=== PATIENT | male | born 1960 | race Caucasian/White ===

== ENCOUNTER 2019-07-15 08:19 | Day surgery (SDC) | payer BC ==
[~2019-07-15] VITALS: Ht 182.9 cm; Wt 88.9 kg
[~2019-07-15 08:19] MED LIST: CLARITIN10 MG PO; Hair, Skin & N1 EACH PO; OMEPRAZOLE20 MG PO
--- NOTE | 2019-07-15 09:05 | NUR ---
History, Chart, Medications and Allergies reviewed before start of procedure. Lungs clear T/O to Auscultation. Patient confirms NPO status and agrees with scheduled surgery. Pre-Op teaching done. Pt verbalizes understanding.
--- NOTE | 2019-07-15 09:18 | NUR ---
07/15/19 0918 Tod Holly PATIENT DETERMINED TO BE ASA APPROPRIATE FOR PROPOFOL SEDATION PRIOR TO START OF PROCEDURE BY . 3-LEAD EKG REVIEWED WITH PHYSICIAN PRIOR TO START OF PROCEDURE.PATIENT CONFIRMS NPO STATUS AND AGREES WITH SCHEDULED PROCEDURE.History, Chart, Medications and Allergies reviewed before start of procedure.MONITOR INTACT WITH CONTINUOUS PULSE OXIMETRY AND INTERMITTENT BP.O2 VIA N/C INTACT THROUGHOUT SEDATION/PROCEDURE.HURRICAINE SPRAY TO OROPHARYX.Bite Block Placed
--- NOTE | 2019-07-15 10:03 | NUR ---
RECEIVED REPORT FROM ENDO RN (RUCHI). PT IS AROUSING. VSS. S.O AT BEDSIDE.
--- NOTE | 2019-07-15 10:09 | NUR ---
DR CASAS SPOKE TO PT. PT SITTING UP DRINKING SM AMOUNTS OF WATER. PT STATES "I GUESS ITS A LITTLE BETTER"
--- NOTE | 2019-07-15 10:15 | NUR ---
Discharge instructions reviewed with patient. Patient verbalizes understanding. Copy given to patient to take home. PT HAS NO QUESTIONS OR CONCERNS WITH GOING HOME. PT HAS D.C PAPERWORK AND ALL PERSONAL BELONGINGS. PT STABLE FOR D.C
--- NOTE | 2019-07-15 10:21 | NUR ---
Patient States Post-Procedure ride home has been arranged. Discharged via wheelchair to private car for ride home.
== END 2019-07-15 23:29 | disposition home or self-care (01) ==
LOC: ORSCMMR 08:19 → ORD 09:30 → ORSCMMR 09:30
PROVIDERS: Internal Medicine Gastroenterology
PROC: 0D758ZZ Dilation of Esophagus, Via Natural or Artificial Opening Endoscopic (ICD-10-PCS; principal; 2019-07-15 09:30)
PROC: 0DB48ZX Excision of Esophagogastric Junction, Via Natural or Artificial Opening Endoscopic, Diagnostic (ICD-10-PCS; principal; 2019-07-15 09:30)
DX: K22.2 Esophageal obstruction (principal); K21.9 Gastro-esophageal reflux disease without esophagitis; Z79.899 Other long term (current) drug therapy
CPT/HCPCS: 88305; C1726; J2704; J7120